=== PATIENT | female | born 1965 | race Caucasian/White ===

== ENCOUNTER → 2016-09-25 | Outpatient (CLI) | payer OTHER ==
[~2016-09-25] MED LIST: ALIVE WOMEN'S1 EACH PO; CELEXA40 M1 PO; DYAZIDE 37.5-21 EACH PO; MOTRIN-DPS600 MG PO; PERCOCET 5 DPS1 TAB PO; PREVACID30 MG PO; XANAX DPS0.25 MG PO
== END | disposition home or self-care (01) ==
LOC: PTH.S 10:45
DX: R19.7 Diarrhea, unspecified (principal)